=== PATIENT | female | born 1955 | race Caucasian/White ===

== ENCOUNTER 2019-03-22 13:06 | Emergency (ER) | payer BC ==
[~2019-03-22] VITALS: Ht 165.1 cm; Wt 68.9 kg
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
[2019-03-22 13:27] VITALS: BP 139/73
[2019-03-22] MEDS ORDERED: ACETAMINOPHEN 325 MG TABLET PO ONE (13:30)
[2019-03-22] MEDS ORDERED: ACETAMINOPHEN ES 500 MG TABLET ONE (13:33)
--- NOTE | 2019-03-22 13:36 | NUR ---
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
== END 2019-03-22 14:50 | disposition home or self-care (01) ==
LOC: ER 13:08
DX: S60.812A Abrasion of left wrist, initial encounter (principal); M54.2 Cervicalgia; V49.49XA Driver injured in collision with other motor vehicles in traffic accident, initial encounter; Y93.89 Activity, other specified; Y92.488 Other paved roadways as the place of occurrence of the external cause; Y99.8 Other external cause status
CPT/HCPCS: 72125-TC; 73110